=== PATIENT | female | born 1985 | race Caucasian/White ===

== ENCOUNTER 2018-08-07 12:18 | Inpatient (IN) | payer OTHER ==
[~2018-08-07] VITALS: Ht 160 cm; Wt 69.4 kg
[2018-08-24] MEDS ORDERED: PRENATAL TABLE1 EAC1 PO (01:44)
== END 2018-08-27 13:01 | disposition home or self-care (01) | DRG 807 ==
LOC: OB/GYN 08-15 11:15 → LDR 08-25 08:20 → SURG-SUITE 08-25 08:20 → OB/GYN 08-27 11:15 → SURG-SUITE 08-27 13:01 → OB/GYN 08-29 11:15
PROVIDERS: ADMIT Specialist
PROC: 10E0XZZ Delivery of Products of Conception, External Approach (ICD-10-PCS; principal; 2018-08-25)
PROC: 0KQM0ZZ Repair Perineum Muscle, Open Approach (ICD-10-PCS; 2018-08-25)
PROC: 4A1HXCZ Monitoring of Products of Conception, Cardiac Rate, External Approach (ICD-10-PCS; 2018-08-25)
DX: O70.1 Second degree perineal laceration during delivery (principal); Z37.0 Single live birth; Z3A.39 39 weeks gestation of pregnancy

== ENCOUNTER 2018-08-24 01:19 | Outpatient (CLI) | payer OTHER ==
[2018-08-24] MEDS ORDERED: PRENATAL TABLE1 EAC1 PO (01:44)
== END 2018-08-24 11:01 | disposition home or self-care (01) ==
LOC: OBS/DEL 01:19
DX: O47.1 False labor at or after 37 completed weeks of gestation (principal); Z34.03 Encounter for supervision of normal first pregnancy, third trimester

== ENCOUNTER 2020-10-25 11:50 | Day surgery (SDC) | payer OTHER ==
[~2020-10-25 11:50] MED LIST: PRENATAL TABLE1 EAC1 PO
== END 2020-10-26 01:20 | disposition home or self-care (01) ==
LOC: CIR.AMB 11:50
PROVIDERS: ATTEND Specialist
DX: O02.1 Missed abortion (principal); Z20.822 Contact with and (suspected) exposure to COVID-19